=== PATIENT | female | born 1965 | race Caucasian/White ===

== ENCOUNTER 2021-06-15 16:19 | Outpatient (REF) | payer MEDICAID, SELFPAY ==
--- NOTE | ~2021-06-15 | MR_ITS ---
EXAMINATION: MR CERVICAL SPINE WITHOUT CONTRAST CLINICAL INFORMATION: Cervical radiculopathy. Spinal stenosis or disc herniation. COMPARISON: Cervical spine MRI 07/13/2018. TECHNIQUE: MRI of the cervical spine was performed using routine sequences without contrast. FINDINGS: The cervical vertebral bodies maintain normal heights and alignment. There is multilevel intervertebral disc height loss. Mild amount of endplate edema is seen at C3-C4, C4-C5, and C6-C7. The cervical cord signal appears normal. The imaged portions of the intracranial contents appear normal. The extraspinal soft tissues appear normal. SPINAL LEVELS: C2-C3: Mild disc bulging. No spinal canal or neural foraminal stenosis. No change. C3-C4: Disc osteophyte complex with uncovertebral hypertrophy resulting in unchanged mild flattening of the ventral thecal sac. Progressive mild narrowing of the left neural foramen. C4-C5: Disc osteophyte complex with ligamentum flavum infolding resulting in progressive moderate to severe spinal canal stenosis with ventral and dorsal cord flattening but no cord edema. Uncovertebral hypertrophy results in severe bilateral neural foraminal stenosis, similar to prior. C5-C6: Disc osteophyte complex with uncovertebral hypertrophy and facet arthropathy results in similar appearing mild spinal canal stenosis and severe bilateral neural foraminal stenosis. C6-C7: Disc osteophyte complex with unchanged mild flattening of the ventral thecal sac. Similar-appearing mild right and moderate to severe left neural foraminal stenosis. C7-T1: No posterior disc abnormality. No spinal canal or neural foraminal stenosis. MR/MR cervical spine wo con IMPRESSION: At C4-C5 there is progressive moderate to severe spinal canal stenosis with ventral and dorsal cord flattening and similar appearing severe bilateral neural foraminal stenosis. At C3-C4 there is progressive mild narrowing of the left neural foramen. Unchanged severe bilateral neural foraminal stenosis at C5-C6. Unchanged moderate to severe stenosis on the left at C6-C7.
== END 2021-06-15 16:20 | disposition home or self-care (01) ==
LOC: HO.MRI 16:19
PROVIDERS: PCP Hospitalist; Visit Provider Psychiatry & Neurology Neurology
DX: M54.12 Radiculopathy, cervical region (principal); M48.02 Spinal stenosis, cervical region
CPT/HCPCS: 72141

== ENCOUNTER → 2022-07-22 09:44 | Outpatient (BNVA) | payer MEDICAID, SELFPAY | PROVIDERS: PCP Hospitalist; Visit Provider Anesthesiology | DX: M47.812 Spondylosis without myelopathy or radiculopathy, cervical region (principal); M50.30 Other cervical disc degeneration, unspecified cervical region; M54.12 Radiculopathy, cervical region; G89.4 Chronic pain syndrome | CPT/HCPCS: 99202 ==

== ENCOUNTER 2022-09-06 09:33 | Outpatient (REF) | payer MEDICAID, SELFPAY ==
--- NOTE | ~2022-09-06 | MR_ITS ---
MR CERVICAL SPINE WITHOUT IV CONTRAST CLINICAL INFORMATION: Cord compression and radiculopathy. COMPARISON: Cervical spine MRI 06/15/2021. TECHNIQUE: MRI of the cervical spine was obtained using routine sequences without contrast. FINDINGS: Straightening the cervical lordosis. Vertebral body heights are maintained. Moderate disc volume loss at C3-C4 and C5-C6. Severe disc volume loss at C4-C5 and C6-C7. Findings unchanged. Craniocervical junction is unremarkable. Modic type I endplate signal changes at C3-C4. No additional bone marrow edema. No acute fractures. Craniocervical junction is unremarkable. The cervical arterial flow voids are maintained. There are no significant extraspinal soft tissue findings. There are no cord signal changes. C2-C3: Posterior disc contour normal. No central canal stenosis and no foraminal stenosis. C3-C4: Disc osteophyte and ligamentum flavum thickening mildly narrow the central canal. Uncovertebral joint hypertrophy and hypertrophic facet arthropathy result in stable moderate right and mild to moderate left foraminal stenosis. C4-C5: Disc osteophyte and ligamentum flavum thickening result in similar moderate to severe central canal stenosis and flattening of the cord. Advanced uncovertebral joint hypertrophy and hypertrophic facet arthropathy result in similar severe bilateral foraminal stenosis. C5-C6: Disc osteophyte and ligamentum flavum thickening mildly narrow the central canal. Advanced uncovertebral joint hypertrophy and hypertrophic facet arthropathy result in similar severe right and moderate left foraminal stenosis. C6-C7: Disc osteophyte mildly narrows the central canal. Advanced uncovertebral joint hypertrophy and hypertrophic facet arthropathy result in similar moderate bilateral foraminal stenosis. C7-T1: Disc contour is normal. No central canal stenosis and no foraminal stenosis. MR/MR cervical spine wo con IMPRESSION: Stable appearing multilevel cervical spondylosis with spondylitic changes resulting in similar moderate to severe central canal stenosis and flattening of the cervical cord at C4-C5 as well as varying degrees of moderate to severe foraminal stenosis bilaterally throughout the cervical spine as discussed in detail above.
== END 2022-09-06 09:34 | disposition home or self-care (01) ==
LOC: HO.MRI 09:33
PROVIDERS: Visit Provider Psychiatry & Neurology Neurology
DX: M54.12 Radiculopathy, cervical region (principal)
CPT/HCPCS: 72141